=== PATIENT | female | born 1990 | race Two or more races ===

== ENCOUNTER → 2018-03-03 | Outpatient (CLI) | payer OTHER | END | disposition home or self-care (01) | LOC: RADMN 08:05 | PROVIDERS: ATTEND Orthopaedic Surgery | DX: M41.86 Other forms of scoliosis, lumbar region (principal) | CPT/HCPCS: 72148; 72195 ==

== ENCOUNTER 2019-05-20 14:46 | Emergency (ER) | payer OTHER ==
[~2019-05-20] VITALS: Ht 162.6 cm; Wt 72.7 kg
[2019-05-20] MEDS ORDERED: ACET-66 PO (14:53)
[2019-05-20] MEDS ORDERED: ACETAMINOPHEN 500 MG TABLET PO ONE ×2 (15:15→15:30)
[2019-05-20] MEDS ORDERED: ONDANSETRON HCL 4 MG TABLET PO ONE (15:15)
[2019-05-20 16:30] VITALS: BP 124/61
== END 2019-05-20 16:38 | disposition home or self-care (01) ==
LOC: EMS 14:47
DX: J06.9 Acute upper respiratory infection, unspecified (principal); Z20.828 Contact with and (suspected) exposure to other viral communicable diseases
CPT/HCPCS: 71045; 87635; 99284; Q0162